=== PATIENT | female | born 1950 | race African-American/Black ===

== ENCOUNTER 2018-06-11 20:17 | Inpatient (IN) | payer MEDICARE, MEDICAID ==
[~2018-06-11] VITALS: Ht 170.2 cm; Wt 92.1 kg
[~2018-06-11 20:17] MED LIST: CLON0.1T PO; CYCL5TAB PO; HYDR-4134 PO; LABE100T5 PO; LEVO500T89 PO; NIAC1000 PO; TAGALUD PO
[2018-06-12 00:27] LABS: BASOPHILS % 1.2 % (0.0-2.0); HEMATOCRIT. 49.2 % (36.0-48.0); HEMOGLOBIN. 16.6 g/dL (12.0-16.0); LYMPHOCYTES % 41.3 % (20.0-50.0); MEAN CORPUSCULAR HEMOGLOBIN 33.2 pg (28.0-32.0); MEAN CORPUSCULAR VOLUME 98.3 fL (81.0-99.0); MEAN PLATELET VOLUME 8.4 fl (7.4-10.4); MONOCYTES % 7.8 % (2.0-8.0); NEUTROPHILS % 47.7 % (40.0-76.0); PLATELET 187 x1000/uL (130-400); RED BLOOD CELL COUNT 5.01 mill/uL (4.2-5.4); RED CELL DISTRIBUTION WIDTH 13.8 % (11.6-14.6)
[2018-06-12 00:31] LABS: CHLORIDE 109 mEq/L (98-107)
[2018-06-12 00:34] LABS: PARTIAL THROMBOPLASTIN TIME 27.2 sec (23.4-31.0); PROTHROMBIN TIME 10.5 sec (9.1-11.1)
[2018-06-12] MEDS ORDERED: ASPIRIN 325MG EC TABLET PO ONE (01:00)
[2018-06-12] MEDS ORDERED: CLONIDINE 0.2MG TABLET PO ONE (01:30)
[2018-06-12] MEDS: MORPHINE SULFATE 4 MG/ML CPJ (NOT FOR IM USE) IV PRN ×3 (11:41→20:10)
[2018-06-12] MEDS ORDERED: HYDRALAZINE 20MG/ML VIAL IV NR (16:45)
[2018-06-12 20:40] LABS: T4 FREE 1.12 ng/dL (0.76-1.46)
[2018-06-12 21:15] VITALS: BP 190/115
[2018-06-12] MEDS ORDERED: LABETALOL HCL PO SCH (22:45)
[2018-06-12] MEDS: HYDRALAZINE HCL 25MG TABLET PO SCH (22:51)
[2018-06-12] MEDS: LABETALOL HCL 100MG TABLET PO SCH (22:52)
[2018-06-12] MEDS: CLONIDINE 0.1MG TABLET PO SCH (22:52)
[2018-06-13] VITALS: BP 156/88
[2018-06-13] MEDS: HYDROCODONE/ACETAMINOPHEN 5/325MG TABLET PO PRN (00:31)
[2018-06-13] MEDS ORDERED: ONDANSETRON HCL 4MG/2ML INJ IV PRN (02:15)
[2018-06-13] MEDS: LABETALOL HCL 100MG TABLET PO SCH ×3 (05:39→21:09)
[2018-06-13] MEDS: HYDRALAZINE HCL 25MG TABLET PO SCH ×3 (05:39→21:09)
[2018-06-13] MEDS: MORPHINE SULFATE 4 MG/ML CPJ (NOT FOR IM USE) IV PRN ×3 (06:42→21:50)
[2018-06-13 08:00] VITALS: BP 167/121
[2018-06-13] MEDS ORDERED: MEDICATION NOT ON FORMULARY EA (Cyclobenzaprine Hcl 1 TAB) PO SCH (09:00)
[2018-06-13] MEDS ORDERED: MEDICATION NOT ON FORMULARY EA (Hydralazine Hcl 1 TAB) PO SCH (09:00)
[2018-06-13] MEDS: CYCLOBENZAPRINE 10MG TABLET PO SCH ×3 (09:20→18:15)
[2018-06-13] MEDS: ENOXAPARIN 30MG/0.3ML SYR SUBCUT SCH ×2 (09:21→20:35)
[2018-06-13 10:22] LABS: BASOPHILS % 0.3 % (0.0-2.0); EOSINOPHILS % 1.8 % (0.0-5.0); HEMATOCRIT. 49.1 % (36.0-48.0); HEMOGLOBIN. 16.7 g/dL (12.0-16.0); LYMPHOCYTES % 38.9 % (20.0-50.0); MEAN CORPUSCULAR HEMOGLOBIN 33.5 pg (28.0-32.0); MEAN CORPUSCULAR VOLUME 98.3 fL (81.0-99.0); MEAN PLATELET VOLUME 8.5 fl (7.4-10.4); MONOCYTES % 7.6 % (2.0-8.0); NEUTROPHILS % 51.4 % (40.0-76.0); PLATELET 187 x1000/uL (130-400); RED CELL DISTRIBUTION WIDTH 13.5 % (11.6-14.6)
[2018-06-13 10:28] LABS: CHLORIDE 103 mEq/L (98-107)
[2018-06-13] MEDS: CLONIDINE 0.1MG TABLET PO PRN (10:29)
[2018-06-13 12:00] VITALS: BP 189/106
[2018-06-13 16:00] VITALS: BP 134/86
[2018-06-13] MEDS: CLONIDINE 0.1MG TABLET PO SCH (18:15)
[2018-06-13 20:00] VITALS: BP 150/96
[2018-06-14] VITALS (8 sets, daily range): BP systolic 136–166; BP diastolic 88–101
[2018-06-14] MEDS: HYDRALAZINE HCL 25MG TABLET PO SCH ×3 (05:21→21:02)
[2018-06-14] MEDS: LABETALOL HCL 100MG TABLET PO SCH ×3 (05:21→21:02)
[2018-06-14] MEDS: HYDROCODONE/ACETAMINOPHEN 5/325MG TABLET PO PRN ×3 (06:37→16:05)
[2018-06-14] MEDS: CYCLOBENZAPRINE 10MG TABLET PO SCH ×3 (08:32→17:11)
[2018-06-14] MEDS: CLONIDINE 0.1MG TABLET PO PRN (08:33)
[2018-06-14] MEDS: ENOXAPARIN 30MG/0.3ML SYR SUBCUT SCH ×2 (08:33→20:41)
[2018-06-14] MEDS: LOSARTAN POTASSIUM 50 MG TABLET PO SCH (10:43)
[2018-06-14] MEDS: CLONIDINE 0.1MG TABLET PO SCH (17:10)
[2018-06-14] MEDS: MORPHINE SULFATE 4 MG/ML CPJ (NOT FOR IM USE) IV PRN ×2 (17:11→21:50)
[2018-06-15] VITALS: BP 139/86
[2018-06-15] MEDS: MORPHINE SULFATE 4 MG/ML CPJ (NOT FOR IM USE) IV PRN ×4 (02:28→18:10)
[2018-06-15 04:00] VITALS: BP 160/98
[2018-06-15] MEDS: HYDRALAZINE HCL 25MG TABLET PO SCH ×3 (05:58→21:18)
[2018-06-15] MEDS: LABETALOL HCL 100MG TABLET PO SCH ×3 (05:58→21:18)
[2018-06-15 07:46] LABS: CHLORIDE 107 mEq/L (98-107)
[2018-06-15 08:00] VITALS: BP 157/89
[2018-06-15] MEDS: CYCLOBENZAPRINE 10MG TABLET PO SCH ×3 (08:22→18:10)
[2018-06-15] MEDS: LOSARTAN POTASSIUM 50 MG TABLET PO SCH (08:22)
[2018-06-15] MEDS: ENOXAPARIN 30MG/0.3ML SYR SUBCUT SCH ×2 (08:23→21:19)
[2018-06-15 12:11] VITALS: BP 138/105
[2018-06-15 16:01] VITALS: BP 143/91
[2018-06-15] MEDS: CLONIDINE 0.1MG TABLET PO SCH (18:10)
[2018-06-15 19:56] VITALS: BP 152/98
[2018-06-15] MEDS: ATORVASTATIN CALCIUM 40MG TABLET PO SCH (21:18)
[2018-06-16] VITALS: BP 142/86
[2018-06-16 04:44] VITALS: BP 146/89
[2018-06-16] MEDS: HYDRALAZINE HCL 25MG TABLET PO SCH ×3 (05:03→21:59)
[2018-06-16] MEDS: LABETALOL HCL 100MG TABLET PO SCH ×3 (05:03→21:59)
[2018-06-16 08:00] VITALS: BP 144/125
[2018-06-16] MEDS: MORPHINE SULFATE 4 MG/ML CPJ (NOT FOR IM USE) IV PRN ×3 (09:32→18:42)
[2018-06-16] MEDS: LOSARTAN POTASSIUM 50 MG TABLET PO SCH (09:37)
[2018-06-16] MEDS: CYCLOBENZAPRINE 10MG TABLET PO SCH ×3 (09:37→17:11)
[2018-06-16] MEDS: ENOXAPARIN 30MG/0.3ML SYR SUBCUT SCH ×2 (09:39→22:06)
[2018-06-16] MEDS ORDERED: LIDOCAINE HCL 1% 20ML VIAL (Pyxis) INJ ONE (09:51)
[2018-06-16] MEDS ORDERED: IOHEXOL-350 100 ML BOTTLE ONE (10:49)
[2018-06-16 16:00] VITALS: BP 149/89
[2018-06-16] MEDS: CLONIDINE 0.1MG TABLET PO SCH (17:11)
[2018-06-16 20:20] VITALS: BP 120/82
[2018-06-16] MEDS: ATORVASTATIN CALCIUM 40MG TABLET PO SCH (21:58)
[2018-06-17] MEDS: MORPHINE SULFATE 4 MG/ML CPJ (NOT FOR IM USE) IV PRN ×4 (00:31→22:09)
[2018-06-17 00:44] VITALS: BP 124/86
[2018-06-17 04:47] VITALS: BP 108/65
[2018-06-17] MEDS: LABETALOL HCL 100MG TABLET PO SCH ×3 (06:00→22:04)
[2018-06-17] MEDS: HYDRALAZINE HCL 25MG TABLET PO SCH ×3 (06:00→22:05)
[2018-06-17 08:00] VITALS: BP 136/85
[2018-06-17] MEDS: LOSARTAN POTASSIUM 50 MG TABLET PO SCH (10:04)
[2018-06-17] MEDS: CYCLOBENZAPRINE 10MG TABLET PO SCH ×3 (10:04→17:27)
[2018-06-17] MEDS: ENOXAPARIN 30MG/0.3ML SYR SUBCUT SCH ×2 (10:04→22:03)
[2018-06-17 12:00] VITALS: BP 106/61
[2018-06-17 16:00] VITALS: BP 109/68
[2018-06-17] MEDS: CLONIDINE 0.1MG TABLET PO SCH (17:00)
[2018-06-17 20:26] VITALS: BP 132/87
[2018-06-17] MEDS: ATORVASTATIN CALCIUM 40MG TABLET PO SCH (22:03)
[2018-06-18 00:55] VITALS: BP 140/101
[2018-06-18 04:00] VITALS: BP 178/106
[2018-06-18] MEDS: CLONIDINE 0.1MG TABLET PO PRN (04:54)
[2018-06-18] MEDS: LABETALOL HCL 100MG TABLET PO SCH ×3 (06:15→21:47)
[2018-06-18] MEDS: HYDRALAZINE HCL 25MG TABLET PO SCH ×3 (06:15→21:48)
[2018-06-18 08:00] VITALS: BP 111/82
[2018-06-18] MEDS: LOSARTAN POTASSIUM 50 MG TABLET PO SCH (09:00)
[2018-06-18] MEDS: CYCLOBENZAPRINE 10MG TABLET PO SCH ×3 (09:00→18:39)
[2018-06-18] MEDS: ENOXAPARIN 30MG/0.3ML SYR SUBCUT SCH ×2 (09:01→21:48)
[2018-06-18 12:00] VITALS: BP 183/110
[2018-06-18] MEDS: MORPHINE SULFATE 4 MG/ML CPJ (NOT FOR IM USE) IV PRN ×2 (14:29→18:47)
[2018-06-18 16:00] VITALS: BP 146/87
[2018-06-18] MEDS: CLONIDINE 0.1MG TABLET PO SCH (18:39)
[2018-06-18 20:09] VITALS: BP 149/98
[2018-06-18] MEDS: ATORVASTATIN CALCIUM 40MG TABLET PO SCH (21:46)
[2018-06-18] MEDS: HYDROCODONE/ACETAMINOPHEN 5/325MG TABLET PO PRN (21:47)
[2018-06-19] VITALS: BP 144/93
[2018-06-19 04:00] VITALS: BP 138/89
[2018-06-19] MEDS: HYDRALAZINE HCL 25MG TABLET PO SCH ×2 (06:54→13:59)
[2018-06-19] MEDS: LABETALOL HCL 100MG TABLET PO SCH ×2 (06:54→13:59)
[2018-06-19] MEDS: HYDROCODONE/ACETAMINOPHEN 5/325MG TABLET PO PRN (06:59)
[2018-06-19 08:00] VITALS: BP 140/88
[2018-06-19] MEDS: LOSARTAN POTASSIUM 50 MG TABLET PO SCH (08:09)
[2018-06-19] MEDS: MORPHINE SULFATE 4 MG/ML CPJ (NOT FOR IM USE) IV PRN ×2 (08:09→12:45)
[2018-06-19] MEDS: CYCLOBENZAPRINE 10MG TABLET PO SCH ×2 (08:09→13:58)
[2018-06-19] MEDS: ENOXAPARIN 30MG/0.3ML SYR SUBCUT SCH (08:10)
[2018-06-19 12:00] VITALS: BP 140/101
[2018-06-19 16:00] VITALS: BP 129/74
[2018-06-19 16:01] VITALS: BP 140/101
== END 2018-06-19 17:35 | disposition home health service (06) | DRG 45 ==
LOC: ER 20:17 → 6WST 06-12 01:24 → ENRESERV 06-12 15:22 → 6WST 06-12 18:42
PROVIDERS: ADMIT Internal Medicine; ATTEND Internal Medicine
PROC: 05H533Z Insertion of Infusion Device into Right Subclavian Vein, Percutaneous Approach (ICD-10-PCS; principal; 2018-06-16)
PROC: B546ZZA Ultrasonography of Right Subclavian Vein, Guidance (ICD-10-PCS; 2018-06-16)
DX: I63.81 Other cerebral infarction due to occlusion or stenosis of small artery (principal); E87.0 Hyperosmolality and hypernatremia; I67.1 Cerebral aneurysm, nonruptured; E87.8 Other disorders of electrolyte and fluid balance, not elsewhere classified; I69.354 Hemiplegia and hemiparesis following cerebral infarction affecting left non-dominant side; R13.10 Dysphagia, unspecified; E11.9 Type 2 diabetes mellitus without complications; E78.00 Pure hypercholesterolemia, unspecified; E78.5 Hyperlipidemia, unspecified; I10 Essential (primary) hypertension; R47.01 Aphasia; R47.1 Dysarthria and anarthria; I25.10 Atherosclerotic heart disease of native coronary artery without angina pectoris; J45.909 Unspecified asthma, uncomplicated; R41.4 Neurologic neglect syndrome; R26.9 Unspecified abnormalities of gait and mobility; F17.210 Nicotine dependence, cigarettes, uncomplicated; Z83.3 Family history of diabetes mellitus; Z79.899 Other long term (current) drug therapy
CPT/HCPCS: 36415; 36569; 70496; 70544; 70553; 71045; 76937; 80048; 80061; 80320; 82607; 82746; 82962; 83036; 83880; 84439; 84443; 84481; 84484; 92523; 92610; 93005; 93880; 96374; 96375; 97162; 97167; 97530; 99285; A6261; C1725; C1769; C1893; J0360; J1650; J2270; J2405; J3490; Q9967; G0480